=== PATIENT | male | born 1950 | race Asian ===

== ENCOUNTER 2024-07-01 21:52 | Emergency (ER) | payer MEDICARE, OTHER ==
[~2024-07-01] VITALS: Ht 170.2 cm; Wt 68.2 kg
[2024-07-01] MEDS: PROPARACAINE HCL 0.5% 15 ML OPHTHALMIC SOLUTION OD ONE (22:15)
[2024-07-01] MEDS: FLUORESCEIN SODIUM 1 MG STRIP OD ONE (22:43)
[2024-07-01 22:46] VITALS: TEMP 97.9
[2024-07-01] MEDS: PILOCARPINE HCL 2% 15 ML OPHTHALMIC SOLUTION OD ONE (23:30)
[2024-07-01] MEDS: BRIMONIDINE TARTRATE 0.2% 5 ML OPHTHALMIC SOLUTION OD ONE (23:30)
[2024-07-01] MEDS: TIMOLOL MALEATE 0.5% 5 ML OPHTHALMIC SOLUTION OD ONE (23:30)
[2024-07-01] MEDS: AcetaZOLAMIDE 250 MG TABLET PO ONE (23:31)
[2024-07-02 00:23] LABS: ERYTHROCYTE SEDIMENTATION RATE 24 MM/HR (0-20)
[2024-07-02] MEDS: MORPHINE SULFATE 2 MG/ML SYRINGE IVP ONE (00:26)
[2024-07-02 00:27] LABS: BASOPHILS % (AUTO) 1.3 % (0.0-2.0); EOSINOPHILS % (AUTO) 8.8 % (1.0-6.0); HEMATOCRIT 42.7 % (41-53); HEMOGLOBIN 14.4 g/dL (13.5-17.5); LYMPHOCYTES # (AUTO) 1.3 K/uL (1.0-4.8); LYMPHOCYTES % (AUTO) 16.4 % (22.0-44.0); MEAN CORPUSCULAR HEMOGLOBIN 31.1 pg (26.0-34.0); MEAN CORPUSCULAR HGB CONC 33.9 G/dL (31.0-37.0); MEAN CORPUSCULAR VOLUME 92 fL (80-100); MONOCYTES # (AUTO) 0.8 K/uL (0.1-1.0); MONOCYTES % (AUTO) 9.3 % (2.0-9.0); NEUTROPHILS # (AUTO) 5.3 K/uL (1.8-7.7); NEUTROPHILS % (AUTO) 64.2 % (40.0-70.0); PLATELET COUNT (AUTO) 280 K/uL (150-450); RED BLOOD CELL COUNT(AUTO) 4.65 MIL/uL (4.50-5.90); RED CELL DISTRIBUTION WIDTH 14.6 % (11.5-14.5); WHITE BLOOD COUNT (AUTO) 8.2 K/uL (4.5-11.0)
[2024-07-02] MEDS: HydrALAZINE HCL 20 MG/ML VIAL IVP ONE (00:27)
[2024-07-02 00:28] VITALS: BP 186/97; PULSE 59; RESP 18; O2SAT 97
[2024-07-02 00:35] LABS: ANION GAP 7 mmol/L (8-16); CALCIUM, TOTAL 8.5 mg/dL (8.8-10.5); CARBON DIOXIDE 28 mmol/L (22-29); CHLORIDE 106 mmol/L (98-107); CREATININE 1.13 mg/dL (0.60-1.30); GLOMERULAR FILTR. RATE CALC > 60 mL/min (>60); GLUCOSE,RANDOM 110 mg/dL (70-110); SODIUM SERUM 141 mmol/L (136-145); UREA NITROGEN, BLOOD 18 mg/dL (7-18)
[2024-07-02 00:39] LABS: C-REACTIVE PROTEIN QUANT 0.42 mg/dL (0.00-0.30)
[2024-07-02] MEDS: DORZOLAMIDE HCL 2% 10 ML OPHTHALMIC SOLUTION OD ONE (00:50)
[2024-07-02] MEDS: ONDANSETRON HCL 4 MG/2 ML VIAL IVP ONE (00:52)
== END 2024-07-02 01:30 | disposition short-term general hospital (02) ==
LOC: EMS 21:52
DX: H40.211 Acute angle-closure glaucoma, right eye (principal)
CPT/HCPCS: 99285; 80048; 85025; 85651; 86140; 36415; 96374; 96375; J0360; J2270; J2405